=== PATIENT | male | born 1995 | race Asian ===

== ENCOUNTER 2016-10-06 03:24 | Emergency (ER) | payer OTHER ==
[~2016-10-06] VITALS: Ht 167.6 cm; Wt 66.0 kg
[2016-10-06] MEDS ORDERED: ONDANSETRON 2MG/ML, 2ML ONE (03:48)
[2016-10-06] MEDS ORDERED: ONDANSETRON 2MG/ML, 2ML IVPush ONE (04:00)
[2016-10-06] MEDS ORDERED: SODIUM CHLORIDE 0.9% 1,000ML IVBOLUS ONE (04:00)
[2016-10-06 04:07] LABS: HEMATOCRIT 45.2 % (39.2-51.8); HEMOGLOBIN 15.2 g/dL (13.7-18.0); WHITE BLOOD COUNT 6.1 x10^3/uL (4.5-13.2)
[2016-10-06 04:19] LABS: BLOOD UREA NITROGEN 9 mg/dL (7-18)
[2016-10-06 07:07] VITALS: BP 121/60
== END 2016-10-06 07:09 | disposition home or self-care (01) ==
LOC: ED 07:02
DX: G31.2 Degeneration of nervous system due to alcohol (principal); F10.120 Alcohol abuse with intoxication, uncomplicated
CPT/HCPCS: 36415; 70450; 80048; 80307; 82040; 85025; 96361; 96374; 99285; J2405; J7030